=== PATIENT | female | born 1950 ===

== ENCOUNTER 2017-05-06 07:04 | Inpatient (IN) | payer MEDICAID ==
[2017-05-06 07:05] VITALS: BMI 31.3
[2017-05-06] MEDS ORDERED: Sodium Chloride 0.9% 1,000 ML IV ONE (07:22)
[2017-05-06] MEDS ORDERED: Albuterol-Ipratrop 3 mg / 0.5 (3 ml) UD INH STA (07:22)
--- NOTE | 2017-05-06 07:25 | C.PDOC ---
History Of Present Illness Patient is a 66 y/o F presenting with fever, productive cough, URI, rhinnorhea, generalized body myalgia that began last night. Patient notes chest pain when coughing. She denies shortness of breath, nausea, vomiting, abdominal pain, constipation, neck pain, or headache. Time Seen by Provider: 05/06/17 07:07 Chief Complaint (Nursing): Fever History Per: Patient History/Exam Limitations: no limitations Onset/Duration Of Symptoms: Hrs Current Symptoms Are (Timing): Still Present Location Of Pain: Diffuse Myalgias Sick Contacts (Context): None Associated Symptoms: Fever, Cough, Myalgias. denies: Nausea, Vomiting Ear Symptoms: Bilateral: None Recent travel outside of the [place]: No Past Medical History Reviewed: Historical Data, Nursing Documentation, Vital Signs Vital Signs: Last Vital Signs Temp 100.1 F H 05/06/17 08:30 Pulse 90 05/06/17 09:46 Resp 20 05/06/17 09:46 BP 111/61 05/06/17 09:46 Pulse Ox 96 05/06/17 09:46 - Medical History PMH: HTN, Hypercholesterolemia, Hypothyroidism Family History: States: Unknown Family Hx - Social History Hx Alcohol Use: No Hx Substance Use: No - Immunization History Hx Tetanus Toxoid Vaccination: No Hx Influenza Vaccination: No Hx Pneumococcal Vaccination: No Review Of Systems Constitutional: Positive for: Fever, Chills, Malaise Eyes: Negative for: Vision Change ENT: Negative for: Ear Pain, Throat Pain Cardiovascular: Positive for: Chest Pain (with cough ). Negative for: Palpitations Respiratory: Positive for: Cough, Sputum. Negative for: Shortness of Breath, SOB with Excertion, Wheezing Gastrointestinal: Negative for: Nausea, Vomiting, Abdominal Pain, Diarrhea, Constipation Genitourinary: Positive for: Dysuria (occasionally ). Negative for: Incontinence, Vaginal Discharge, Vaginal Bleeding Musculoskeletal: Negative for: Neck Pain, Back Pain Skin: Negative for: Rash Neurological: Negative for: Confusion, Altered Mental Status, Headache Physical Exam - Physical Exam Appears: Well, Non-toxic, No Acute Distress Skin: Warm, Dry Head: Atraumatic, Normacephalic Eye(s): bilateral: Normal Inspection, PERRL, EOMI Ear(s): Bilateral: Normal Nose: Normal, No Discharge Oral Mucosa: Moist Throat: Erythema (scant erythema), No Exudate Neck: Normal ROM, Supple Chest: Symmetrical, No Deformity Cardiovascular: Rhythm Regular, No Murmur Respiratory: No Rales, No Rhonchi, Wheezing (scant wheezing at bases) Gastrointestinal/Abdominal: Soft, No Tenderness Back: Normal Inspection, No CVA Tenderness Extremity: Normal ROM, No Tenderness, Other (moving all extremities ) Neurological/Psych: Oriented x3 Gait: Steady ED Course And Treatment - Laboratory Results Result Diagrams: 05/06/17 07:42 05/06/17 07:42 O2 Sat by Pulse Oximetry: 96 - Radiology CXR: Viewed By Me, Read By Radiologist CXR Interpretation: Yes: Other (Mild venous congestion. Right hilar prominence. ) - Physician Consult Information Time Consulting Physician Contacted: 09:11 Physician Contacted: Gokul Fisher Outcome Of Conversation: Case discussed with Dr. Fisher, and agrees on admission and plan. Medical Decision Making Medical Decision Making: Differential: Pneumonia vs. Strep vs. Viral infection Cxray conerning for developing R sided infiltrate. Lactate 1.6. IVF infusing. Duoneb given. Tylenol given in triage and toradol ordered. Started on antibiotics for community acquired pneumonia. Influenza resulted and positive. Tamiflu ordered. Spoke to Dr. Clement Fisher. Due to tachypnea, high fever, co- morbid conditions, will admit for influenza and pna. Disposition - Disposition Disposition: HOSPITALIZED Disposition Time: 08:28 Condition: FAIR - Clinical Impression Clinical Impression: Pneumonia, Influenza A - Scribe Statement The provider has reviewed the documentation as recorded by the Scribe Viky Mariscal All medical record entries made by the Scribe were at my direction and personally dictated by me. I have reviewed the chart and agree that the record accurately reflects my personal performance of the history, physical exam, medical decision making, and the department course for this patient. I have also personally directed, reviewed, and agree with the discharge instructions and disposition.
[2017-05-06] MEDS ORDERED: Sodium Chloride 0.9% 1,000 ML ONE (07:28)
[2017-05-06] MEDS ORDERED: Azithromycin 500 MG in Sodium Chloride 0.9% 250 ML IVPB STA (07:35)
[2017-05-06] MEDS ORDERED: cefTRIAXone IV 1 gm in Dextros 50 ML IVPB STA (07:35)
[2017-05-06 07:48] LABS: BASO # 0.1 K/uL (0.0-0.2); BASO % 1.1 % (0.0-2.0); EOS # 0.1 K/uL (0.0-0.7); EOS % 0.8 % (0.0-4.0); HEMATOCRIT 32.8 % (34.0-47.0); LYMPH # 0.7 K/uL (1.0-4.3); LYMPH % 10.4 % (20.0-40.0); MEAN CELL VOLUME 73.9 fL (81.0-99.0); MEAN CORPUSCULAR HGB CONC 32.5 g/dL (33.0-37.0); MEAN PLATELET VOLUME 8.6 fL (7.2-11.7); MONO # 0.6 K/uL (0.0-0.8); MONO % 9.7 % (0.0-10.0); RED CELL DISTRIBUTION WIDTH 16.3 % (11.5-14.5); WHITE BLOOD COUNT 6.3 K/uL (4.8-10.8)
[2017-05-06 07:58] LABS: CHLORIDE 99 mmol/L (98-107)
[2017-05-06 07:59] LABS: SODIUM 132 mmol/L (132-148)
[2017-05-06 08:00] LABS: POTASSIUM 4.1 mmol/L (3.6-5.2)
[2017-05-06 08:01] LABS: GFR AFRICAN-AMERICAN > 60
[2017-05-06 08:01] LABS: VENOUS BLOOD GAS BASE EXCESS 0.6 mmol/L (0.0-2.0); VENOUS BLOOD GAS PCO2 36 mmHg (40-60); VENOUS BLOOD PH 7.44 (7.32-7.43)
[2017-05-06 08:02] LABS: ALB/GLOB RATIO 1.3 (1.0-2.1); ALKALINE PHOSPHATASE 114 U/L (38-126); ALT/SGPT 80 U/L (9-52); AST/SGOT 53 U/L (14-36); BILIRUBIN,TOTAL 0.5 mg/dL (0.2-1.3); BLOOD UREA NITROGEN 12 mg/dL (7-17); CARBON DIOXIDE 24 mmol/L (22-30); GLUCOSE,RANDOM 124 mg/dL (65-105)
[2017-05-06 08:03] LABS: CALCIUM 8.6 mg/dl (8.6-10.4); MAGNESIUM 1.5 mg/dL (1.6-2.3); PHOSPHOROUS 2.3 mg/dL (2.5-4.5)
[2017-05-06] MEDS ORDERED: cefTRIAXone IV 1 gm in Dextros 50 ML IVPB ONE (08:12)
[2017-05-06] MEDS ORDERED: Azithromycin 500mg/250ML NS 500 MG/250 ML BAG IVPB ONE (08:12)
[2017-05-06] MEDS ORDERED: Ipratropium 0.02% Inhal Soln (0.5 mg/2.5 ml) UD IH ONE (08:31)
--- NOTE | 2017-05-06 08:53 | RAD ---
HISTORY: fever, cough COMPARISON: 04/21/2016 FINDINGS: LUNGS: Mild venous congestion. Right hilar prominence. PLEURA: No significant pleural effusion identified, no pneumothorax apparent. CARDIOVASCULAR: Normal. OSSEOUS STRUCTURES: No significant abnormalities. VISUALIZED UPPER ABDOMEN: Normal. OTHER FINDINGS: None. IMPRESSION: Mild venous congestion. Right hilar prominence.
[2017-05-06] MEDS: Levothyroxine 25 MCG TAB PO SCH (13:23)
[2017-05-06] MEDS: Pantoprazole 40 mg EC Tab PO SCH (13:32)
[2017-05-06] MEDS: Magnesium Sulfate 1 gm in D5W 1 GM/100 ML BAG IVPB SCH ×2 (13:32→13:41)
[2017-05-06] MEDS: Multiple Vitamins Tab PO SCH (13:32)
[2017-05-06] MEDS: Promethazine 6.25 MG/5 ML CUP PO PRN ×2 (13:41→21:25)
--- NOTE | 2017-05-06 14:03 | HP ---
HISTORY OF PRESENT ILLNESS: This is a 66-year-old [place] female came to the Emergency Room with history of high fever and chills. The patient has productive cough. The patient has rhinorrhea. The patient also complains of upper respiratory tract infection. The patient has generalized body myalgia and fatigue. This complaint started last night. The patient denies having any chest pain. She denies shortness of breath. No history of nausea, vomiting, or abdominal pain. No constipation, neck pain or headache. REVIEW OF SYSTEMS: CARDIOVASCULAR SYSTEM: Negative for chest pain. RESPIRATORY SYSTEM: As mentioned above. GI SYSTEM: No nausea, vomiting. No abdominal pain. 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 No backache. No urinary complaints. PSYCHIATRIC: The patient is stable. All other systems are negative. PAST MEDICAL HISTORY: History of hypertension, hypercholesterolemia, hypothyroidism, and diabetes. ALLERGIES: NO KNOWN ALLERGY. FAMILY HISTORY: No known inherited disease. SOCIAL HISTORY: Nonalcoholic. No IVDA. MEDICATIONS: The patient's medications are reviewed by me. PHYSICAL EXAMINATION GENERAL: This is a 66-year-old [place] female, alert, oriented, comfortable. VITAL SIGNS: Temperature 100.1, pulse 90, respirations 20, blood pressure 111/61 mmHg, pulse ox is 96% on room air. HEENT: Normal. NECK: JVP is flat. Carotids, no bruits. HEART: S1 and S2 normal. No gallop. No murmur. LUNGS: No rales, no wheezing. ABDOMEN: Soft, nontender. No organomegaly. GEOTHERMAL INSTALLER: No focal neurological deficits. EXTREMITIES: No edema of the legs. On admission, influenza serology is positive. Anemia is present. Hypomagnesemia present. Mild abnormal liver function test present. Hypertension and diabetes. PLAN: The patient will be admitted to the floor. We will get ID consult. IV antibiotic. Chest x-ray showed right hilar prominence and vascular congestion. diagnosis: possible pneumonia. flu. anemia, htn, dm. Gokul Fisher MD [facility] CLINICGoldie
[2017-05-06 16:18] VITALS: RESP 20
[2017-05-06] MEDS: (Novolin R) Insulin Human Regular 100 units/ml vial SC SCH ×2 (18:03→22:13)
[2017-05-07] MEDS: Promethazine 6.25 MG/5 ML CUP PO PRN (05:00)
[2017-05-07] MEDS: Levothyroxine 25 MCG TAB PO SCH (06:12)
[2017-05-07] MEDS: (Novolin R) Insulin Human Regular 100 units/ml vial SC SCH ×4 (07:23→21:20)
[2017-05-07] MEDS: cefTRIAXone IV 1 gm in Dextros 50 ML IVPB SCH (09:36)
[2017-05-07] MEDS: Multiple Vitamins Tab PO SCH (09:36)
[2017-05-07] MEDS: Pantoprazole 40 mg EC Tab PO SCH (09:36)
[2017-05-07] MEDS: Enoxaparin 40 mg Syringe SC SCH (09:37)
[2017-05-07] MEDS ORDERED: Albuterol-Ipratrop 3 mg / 0.5 (3 ml) UD INH STA (09:49)
--- NOTE | 2017-05-07 11:03 | CP.PCM.CON ---
History of Present Illness - History of Present Illness History of Present Illness: Patient is a 66 y/o F presenting with fever, productive cough, URI, rhinnorhea, generalized body myalgia that began last night. Patient notes chest pain when coughing. She denies shortness of breath, nausea, vomiting, abdominal pain, constipation, neck pain, or headache. - Medical History PMH: HTN, Hypercholesterolemia, Hypothyroidism Family History: States: Unknown Family Hx Review of Systems - Review of Systems All systems: reviewed and no additional remarkable complaints except - Constitutional Constitutional: As Per HPI - EENT Eyes: absent: As Per HPI, Blind Spots, Blurred Vision, Change in Vision, Decreased Night Vision, Diplopia, Discharge, Dry Eye, Exophthalmos, Floaters, Irritation, Itchy Eyes, Loss of Peripheral Vision, Pain, Photophobia, Requires Corrective Lenses, Sees Flashes, Spots in Vision, Tunnel Vision, Other Visual Disturbances, Loss of Vision, Other Ears: absent: As Per HPI, Decreased Hearing, Ear Discharge, Ear Pain, Tinnitus, Abnormal Hearing, Disequilibrium, Dizziness, Other Nose/Mouth/Throat: absent: As Per HPI, Epistaxis, Nasal Congestion, Nasal Discharge, Nasal Obstruction, Nasal Trauma, Nose Pain, Post Nasal Drip, Sinus Pain, Sinus Pressure, Bleeding Gums, Change in Voice, Dental Pain, Dry Mouth, Dysphagia, Halitosis, Hoarsness, Lip Swelling, Mouth Lesions, Mouth Pain, Odynophagia, Sore Throat, Throat Swelling, Tongue Swelling, Facial Pain, Neck Pain, Neck Mass, Other - Breasts Breasts: absent: As Per HPI, Change in Shape, Mass, Pain, Nipple Discharge, Nipple Inversion, Skin Changes, Swelling, Other - Cardiovascular Cardiovascular: absent: As Per HPI, Acrocyanosis, Chest Pain, Chest Pain at Rest , Chest Pain with Activity, Claudication, Diaphoresis, Dyspnea, Dyspnea on Exertion, Edema, Irregular Heart Rhythm, Pain Radiating to Arm/Neck/Jaw, Leg Edema, Leg Ulcers, Lightheadedness, Orthopnea, Palpitations, Paroxysmal Nocturnal Dyspnea, Pedal Edema, Radiating Pain, Rapid Heart Rate, Slow Heart Rate, Syncope, Other - Respiratory Respiratory: As Per HPI, Cough. absent: Hemoptysis - Gastrointestinal Gastrointestinal: absent: As Per HPI, Abdominal Pain, Belching, Bloating, Change in Bowel Habits, Change in Stool Character, Coffee Ground Emesis, Constipation, Cramping, Diarrhea, Dyspepsia, Dysphagia, Early Satiety, Excessive Flatus, Fecal Incontinence, Heartburn, Hematemesis, Hematochezia, Loose Stools, Melena, Nausea, Odynophagia, Temesmus, Vomiting, Other - Reproductive: Female Reproductive:Female: absent: As Per HPI, Amenorrhea, Amenorrhea/ Control, Currently Menstual, Cycle <21 Days, Cycle >35 Days, Cycle Variable, Menses 1-7 Days, Menses >/= 8 Days, Menses Variable, Cycle > 4 Weeks Between, No Menses for 6 Months, Heavy Menses, Light Menses, Normal Menses, Spotting Between Cycles , S/P Hysterectomy, Menopausal, Post Menopausal, Premenarche, Abnormal Vaginal Bleeding, Dysmenorrhea, Dyspareunia, Genital Lesions, Genital Pruritis, Pelvic Pain, Prolapse Symptoms, Sexual Dysfunction, Vaginal Discharge, Vaginal Dryness , Vaginal Odor, Vaginal Pruritis, Other - Menstruation Menstruation: absent: As Per HPI, Amenorrhea, Amenorrhea/ Control, Currently Menstual, Cycle <21 Days, Cycle >35 Days, Cycle Variable, Menses 1-7 Days, Menses >/= 8 Days, Menses Variable, Cycle > 4 Weeks Between, No Menses for 6 Months, Heavy Menses, Light Menses, Normal Menses, Spotting Between Cycles , S/P Hysterectomy, Menopausal, Post Menopausal, Premenarche, Abnormal Vaginal Bleeding, Dysmenorrhea, Other - Musculoskeletal Musculoskeletal: absent: As Per HPI, Abnormal Gait, Arthralgias, Atrophy, Back Pain, Deformity, Joint Swelling, Limited Range of Motion, Loss of Height, Muscle Cramps, Muscle Weakness, Myalgias, Neck Pain, Numbness, Radiating Pain into Limb, Stiffness, Tingling, Other - Integumentary Integumentary: absent: As Per HPI, Acne, Alopecia, Bleeding Lesions, Change in Hair, Change in Nails, Change in Pigmentation, Changing Lesions, Dry Skin, Erythema, Furuncle, Hirsutism, Lesions, New Lesions, Non-Healing Lesions, Photosensitivity, Pruritus, Rash, Skin Pain, Skin Ulcer, Sores, Striae, Swelling , Unusual Bruising, Wounds, Jaundice, Other - Neurological Neurological: absent: As Per HPI, Abnormal Gait, Abnormal Hearing, Abnormal Movements, Abnormal Speech, Behavioral Changes, Burning Sensations, Confusion, Convulsions, Disequilibrium, Dizziness, Numbness, Focal Weakness, Frequent Falls , Headaches, Lack of Coordination, Loss of Vision, Memory Loss, Paresthesias, Radicular Pain, Restless Legs, Sensory Deficit, Syncope, Tingling, Tremor, Vertigo, Weakness, Other Visual Disturbances, Other - Psychiatric Psychiatric: absent: As Per HPI, Abnormal Sleep Pattern, Anhedonia, Anxiety, Auditory Hallucinations, Behavioral Changes, Change in Appetite, Change in Libido, Confusion, Depression, Difficulty Concentrating, Hallucinations, Homicidal Ideation, Hopelessness, Irritability, Memory Loss, Mood Swings, Panic Attacks, Paranoia, Suicidal Ideation, Visual Hallucinations, Tactile Hallucinations, Other Past Patient History - Past Social History Smoking Status: Never Smoked - CARDIAC Hx Cardiac Disorders: Yes Hx Hypercholesterolemia: Yes Hx Hypertension: Yes - PULMONARY Hx Respiratory Disorders: No - NEUROLOGICAL Hx Neurological Disorder: No - HEENT Hx HEENT Problems: No - RENAL Hx Chronic Kidney Disease: No - ENDOCRINE/METABOLIC Hx Endocrine Disorders: Yes Hx Diabetes Mellitus Type 2: Yes Hx Hypothyroidism: Yes - HEMATOLOGICAL/ONCOLOGICAL Hx Blood Disorders: No - INTEGUMENTARY Hx Dermatological Problems: No - MUSCULOSKELETAL/RHEUMATOLOGICAL Hx Musculoskeletal Disorders: No Hx Falls: No - GASTROINTESTINAL Hx Gastrointestinal Disorders: No - GENITOURINARY/GYNECOLOGICAL Hx Genitourinary Disorders: No - PSYCHIATRIC Hx Psychophysiologic Disorder: No Hx Substance Use: No - SURGICAL HISTORY Hx Surgeries: No - ANESTHESIA Hx Anesthesia: No Meds Allergies/Adverse Reactions: Allergies Allergy/AdvReac Type Severity Reaction Status Date / Time No Known Allergies Allergy Verified 05/24/16 11:29 - Medications Medications: Current Medications Acetaminophen (Tylenol 325mg Tab) 650 mg PO Q6 PRN PRN Reason: Headache Last Admin: 05/06/17 16:32 Dose: 650 mg Albuterol/Ipratropium (Duoneb 3 Mg/0.5 Mg (3 Ml) Ud) 3 ml INH RQ6 [facility] Aspirin (Aspirin Chewable) 81 mg PO DAILY [facility] Last Admin: 05/07/17 09:36 Dose: 81 mg Enoxaparin Sodium (Lovenox) 40 mg SC DAILY [facility] Last Admin: 05/07/17 09:37 Dose: 40 mg Gabapentin (Neurontin) 300 mg PO DAILY [facility] Last Admin: 05/07/17 09:36 Dose: 300 mg Ceftriaxone Sodium (Rocephin Iv 1 Gm Duplex) 50 mls @ 100 mls/hr IVPB DAILY [facility] Last Admin: 05/07/17 09:36 Dose: 100 mls/hr Insulin Human Regular (Novolin R) 0 unit SC ACHS [facility] PRN Reason: Protocol Last Admin: 05/07/17 07:23 Dose: Not Given Levothyroxine Sodium (Synthroid) 25 mcg PO DAILY@0630 [facility] Last Admin: 05/07/17 06:12 Dose: 25 mcg Metformin HCl (Glucophage) 500 mg PO DAILY [facility] Last Admin: 05/07/17 09:36 Dose: 500 mg Metoprolol Tartrate (Lopressor) 25 mg PO DAILY [facility] Last Admin: 05/07/17 09:36 Dose: 25 mg Multivitamins (Hexavitamin) 1 tab PO DAILY [facility] Last Admin: 05/07/17 09:36 Dose: 1 tab Pantoprazole Sodium (Protonix Ec Tab) 40 mg PO DAILY [facility] Last Admin: 05/07/17 09:36 Dose: 40 mg Promethazine HCl (Phenergan Syrup) 6.25 mg PO Q6 PRN PRN Reason: Cough Last Admin: 05/07/17 05:00 Dose: 6.25 mg Rosuvastatin Calcium (Crestor) 5 mg PO HS [facility] Last Admin: 05/06/17 21:21 Dose: 5 mg Physical Exam - Constitutional Appears: Non-toxic, Chronically Ill - Head Exam Head Exam: NORMOCEPHALIC - Eye Exam Eye Exam: PERRL - ENT Exam ENT Exam: Mucous Membranes Dry - Neck Exam Neck exam: Negative for: Lymphadenopathy - Respiratory Exam Respiratory Exam: Decreased Breath Sounds - Cardiovascular Exam Cardiovascular Exam: REGULAR RHYTHM, +S1, +S2 - GI/Abdominal Exam GI & Abdominal Exam: Diminished Bowel Sounds, Soft - Rectal Exam Rectal Exam: Deferred - Exam Exam: NORMAL INSPECTION - Extremities Exam Extremities exam: Negative for: pedal edema - Back Exam Back exam: absent: CVA tenderness (L), CVA tenderness (R) - Neurological Exam Neurological exam: Alert, CN II-XII Intact, Oriented x3, Reflexes Normal - Psychiatric Exam Psychiatric exam: Normal Mood - Skin Skin Exam: Dry Results - Vital Signs Recent Vital Signs: Last Vital Signs Temp 98.1 F 05/07/17 09:04 Pulse 67 05/07/17 09:04 Resp 20 05/07/17 09:04 BP 154/75 H 05/07/17 09:36 Pulse Ox 97 05/07/17 09:04 - Labs Result Diagrams: 05/06/17 07:42 05/06/17 07:42 Labs: Laboratory Results - last 24 hr 05/06/17 05/06/17 05/06/17 12:00 16:54 21:32 POC Glucose (mg/dL) 146 H 162 H 130 H Stool Occult Blood 05/07/17 05/07/17 06:27 07:53 POC Glucose (mg/dL) 132 H Stool Occult Blood Negative Assessment & Plan (1) Influenza A Status: Acute (2) Pneumonia Status: Acute - Assessment and Plan (Free Text) Assessment: cont tamiflu await blood/ sputum cultures
--- NOTE | 2017-05-07 12:21 | CP.PCM.PN ---
Subjective - Date & Time of Evaluation Date of Evaluation: 05/07/17 Time of Evaluation: 12:18 - Subjective Subjective: FEELS SLIGHTLY BETTER. COUGH PRESENT. LOW GRADE TEMP. Objective - Vital Signs/Intake and Output Vital Signs (last 24 hours): Temp Pulse Resp BP Pulse Ox 98.1 F 67 20 154/75 H 97 05/07/17 09:04 05/07/17 09:04 05/07/17 09:04 05/07/17 09:36 05/07/17 09:04 Intake and Output: 05/07/17 05/07/17 06:59 18:59 Intake Total 240 Balance 240 - Medications Medications: Current Medications Acetaminophen (Tylenol 325mg Tab) 650 mg PO Q6 PRN PRN Reason: Headache Last Admin: 05/06/17 16:32 Dose: 650 mg Albuterol/Ipratropium (Duoneb 3 Mg/0.5 Mg (3 Ml) Ud) 3 ml INH RQ6 [facility] Aspirin (Aspirin Chewable) 81 mg PO DAILY [facility] Last Admin: 05/07/17 09:36 Dose: 81 mg Enoxaparin Sodium (Lovenox) 40 mg SC DAILY [facility] Last Admin: 05/07/17 09:37 Dose: 40 mg Gabapentin (Neurontin) 300 mg PO DAILY [facility] Last Admin: 05/07/17 09:36 Dose: 300 mg Ceftriaxone Sodium (Rocephin Iv 1 Gm Duplex) 50 mls @ 100 mls/hr IVPB DAILY [facility] Last Admin: 05/07/17 09:36 Dose: 100 mls/hr Insulin Human Regular (Novolin R) 0 unit SC ACHS [facility] PRN Reason: Protocol Last Admin: 05/07/17 11:55 Dose: 2 unit Levothyroxine Sodium (Synthroid) 25 mcg PO DAILY@0630 [facility] Last Admin: 05/07/17 06:12 Dose: 25 mcg Metformin HCl (Glucophage) 500 mg PO DAILY [facility] Last Admin: 05/07/17 09:36 Dose: 500 mg Metoprolol Tartrate (Lopressor) 25 mg PO DAILY [facility] Last Admin: 05/07/17 09:36 Dose: 25 mg Multivitamins (Hexavitamin) 1 tab PO DAILY [facility] Last Admin: 05/07/17 09:36 Dose: 1 tab Oseltamivir Phosphate (Tamiflu Cap) 75 mg PO BID [facility] Stop: 05/12/17 11:02 Last Admin: 05/07/17 11:55 Dose: 75 mg Pantoprazole Sodium (Protonix Ec Tab) 40 mg PO DAILY [facility] Last Admin: 05/07/17 09:36 Dose: 40 mg Promethazine HCl (Phenergan Syrup) 6.25 mg PO Q6 PRN PRN Reason: Cough Last Admin: 05/07/17 05:00 Dose: 6.25 mg Rosuvastatin Calcium (Crestor) 5 mg PO HS [facility] Last Admin: 05/06/17 21:21 Dose: 5 mg - Labs Labs: 05/06/17 07:42 05/06/17 07:42 - Constitutional Appears: No Acute Distress, Chronically Ill - Eye Exam Eye Exam: Normal appearance, PERRL - ENT Exam ENT Exam: Normal Exam - Respiratory Exam Respiratory Exam: Clear to Ausculation Bilateral, NORMAL BREATHING PATTERN - Cardiovascular Exam Cardiovascular Exam: REGULAR RHYTHM, +S1, +S2 - GI/Abdominal Exam GI & Abdominal Exam: Soft, Normal Bowel Sounds - Extremities Exam Extremities Exam: Full ROM, Normal Capillary Refill, Normal Inspection. absent : Joint Swelling, Pedal Edema - Back Exam Back Exam: NORMAL INSPECTION - Neurological Exam Neurological Exam: Alert, Awake, CN II-XII Intact, Normal Gait, Oriented x3 - Psychiatric Exam Psychiatric exam: Normal Affect, Normal Mood Assessment and Plan - Assessment and Plan (Free Text) Assessment: INFLUENZA A. R/O PNEUMONIA. Plan: FOR CHEST X RAY. IV ROCEPHIN/
[2017-05-07] MEDS: Albuterol-Ipratrop 3 mg / 0.5 (3 ml) UD INH SCH (13:54)
--- NOTE | 2017-05-07 15:07 | RAD ---
HISTORY: COUGH COMPARISON: Portable chest 05/06/2017. TECHNIQUE: Chest PA and lateral FINDINGS: LUNGS: No active pulmonary disease. PLEURA: No significant pleural effusion identified. No pneumothorax apparent. CARDIOVASCULAR: Stable mild cardiomegaly noted. No pulmonary vascular derangement identified at this time. OSSEOUS STRUCTURES: No significant abnormalities. VISUALIZED UPPER ABDOMEN: Normal. OTHER FINDINGS: None. IMPRESSION: Stable mild cardiomegaly. No acute pulmonary disease appreciated bilaterally.
[2017-05-08] MEDS: Levothyroxine 25 MCG TAB PO SCH (05:56)
[2017-05-08] MEDS: (Novolin R) Insulin Human Regular 100 units/ml vial SC SCH ×3 (08:02→17:10)
[2017-05-08] MEDS: Albuterol-Ipratrop 3 mg / 0.5 (3 ml) UD INH SCH ×2 (08:10→13:24)
[2017-05-08 09:39] VITALS: BP 158/94
[2017-05-08] MEDS: cefTRIAXone IV 1 gm in Dextros 50 ML IVPB SCH (09:47)
[2017-05-08] MEDS: Multiple Vitamins Tab PO SCH (09:48)
[2017-05-08] MEDS: Pantoprazole 40 mg EC Tab PO SCH (09:48)
[2017-05-08] MEDS: Enoxaparin 40 mg Syringe SC SCH (09:49)
--- NOTE | 2017-05-08 12:34 | CP.PCM.PN ---
Subjective - Date & Time of Evaluation Date of Evaluation: 05/08/17 Time of Evaluation: 12:31 - Subjective Subjective: improving. afebrile. chest x ray wnl. Objective - Vital Signs/Intake and Output Vital Signs (last 24 hours): Temp Pulse Resp BP Pulse Ox 97.4 F L 68 20 158/94 H 100 05/08/17 09:38 05/08/17 09:38 05/08/17 09:38 05/08/17 09:48 05/08/17 09:38 Intake and Output: 05/08/17 05/08/17 06:59 18:59 Intake Total 1350 Balance 1350 - Medications Medications: Current Medications Acetaminophen (Tylenol 325mg Tab) 650 mg PO Q6 PRN PRN Reason: Headache Last Admin: 05/08/17 03:30 Dose: 650 mg Albuterol/Ipratropium (Duoneb 3 Mg/0.5 Mg (3 Ml) Ud) 3 ml INH RQ6 [facility] Last Admin: 05/08/17 08:10 Dose: 3 ml Aspirin (Aspirin Chewable) 81 mg PO DAILY [facility] Last Admin: 05/08/17 09:48 Dose: 81 mg Enoxaparin Sodium (Lovenox) 40 mg SC DAILY [facility] Last Admin: 05/08/17 09:49 Dose: 40 mg Gabapentin (Neurontin) 300 mg PO DAILY [facility] Last Admin: 05/08/17 09:48 Dose: 300 mg Ceftriaxone Sodium (Rocephin Iv 1 Gm Duplex) 50 mls @ 100 mls/hr IVPB DAILY [facility] Last Admin: 05/08/17 09:47 Dose: 100 mls/hr Insulin Human Regular (Novolin R) 0 unit SC ACHS [facility] PRN Reason: Protocol Last Admin: 05/08/17 08:02 Dose: Not Given Levothyroxine Sodium (Synthroid) 25 mcg PO DAILY@0630 [facility] Last Admin: 05/08/17 05:56 Dose: 25 mcg Metformin HCl (Glucophage) 500 mg PO DAILY [facility] Last Admin: 05/08/17 09:48 Dose: 500 mg Metoprolol Tartrate (Lopressor) 25 mg PO DAILY [facility] Last Admin: 05/08/17 09:48 Dose: 25 mg Multivitamins (Hexavitamin) 1 tab PO DAILY [facility] Last Admin: 05/08/17 09:48 Dose: 1 tab Oseltamivir Phosphate (Tamiflu Cap) 75 mg PO BID [facility] Stop: 05/12/17 11:02 Last Admin: 05/08/17 09:48 Dose: 75 mg Pantoprazole Sodium (Protonix Ec Tab) 40 mg PO DAILY [facility] Last Admin: 05/08/17 09:48 Dose: 40 mg Promethazine HCl (Phenergan Syrup) 6.25 mg PO Q6 PRN PRN Reason: Cough Last Admin: 05/07/17 05:00 Dose: 6.25 mg Rosuvastatin Calcium (Crestor) 5 mg PO HS [facility] Last Admin: 05/07/17 21:32 Dose: 5 mg - Labs Labs: 05/06/17 07:42 05/06/17 07:42 - Constitutional Appears: No Acute Distress, Chronically Ill - Eye Exam Eye Exam: Normal appearance, PERRL - ENT Exam ENT Exam: Normal Exam - Respiratory Exam Respiratory Exam: Clear to Ausculation Bilateral, NORMAL BREATHING PATTERN - Cardiovascular Exam Cardiovascular Exam: REGULAR RHYTHM, +S1, +S2 - GI/Abdominal Exam GI & Abdominal Exam: Soft, Normal Bowel Sounds - Extremities Exam Extremities Exam: Full ROM, Normal Capillary Refill, Normal Inspection. absent : Joint Swelling, Pedal Edema - Back Exam Back Exam: NORMAL INSPECTION - Neurological Exam Neurological Exam: Alert, Awake, CN II-XII Intact, Normal Gait, Oriented x3 Assessment and Plan - Assessment and Plan (Free Text) Assessment: influenza a flu. Plan: discharge home. [id number] mg po bid [address] all home meds. f/u in office 2 wks.
--- NOTE | 2017-05-08 16:38 | CP.PCM.PN ---
Subjective - Date & Time of Evaluation Date of Evaluation: 05/08/17 Time of Evaluation: 11:00 - Subjective Subjective: Alert, orientedx3, no sob or chest pains. Objective - Vital Signs/Intake and Output Vital Signs (last 24 hours): Temp Pulse Resp BP Pulse Ox 97.4 F L 68 20 158/94 H 100 05/08/17 09:38 05/08/17 09:38 05/08/17 09:38 05/08/17 16:07 05/08/17 09:38 Intake and Output: 05/08/17 05/08/17 06:59 18:59 Intake Total 1350 360 Balance 1350 360 - Medications Medications: Current Medications Acetaminophen (Tylenol 325mg Tab) 650 mg PO Q6 PRN PRN Reason: Headache Last Admin: 05/08/17 03:30 Dose: 650 mg Albuterol/Ipratropium (Duoneb 3 Mg/0.5 Mg (3 Ml) Ud) 3 ml INH RQ6 [facility] Last Admin: 05/08/17 13:24 Dose: 3 ml Aspirin (Aspirin Chewable) 81 mg PO DAILY [facility] Last Admin: 05/08/17 09:48 Dose: 81 mg Enoxaparin Sodium (Lovenox) 40 mg SC DAILY [facility] Last Admin: 05/08/17 09:49 Dose: 40 mg Gabapentin (Neurontin) 300 mg PO DAILY [facility] Last Admin: 05/08/17 09:48 Dose: 300 mg Ceftriaxone Sodium (Rocephin Iv 1 Gm Duplex) 50 mls @ 100 mls/hr IVPB DAILY [facility] Last Admin: 05/08/17 09:47 Dose: 100 mls/hr Insulin Human Regular (Novolin R) 0 unit SC ACHS [facility] PRN Reason: Protocol Last Admin: 05/08/17 12:30 Dose: 2 unit Levothyroxine Sodium (Synthroid) 25 mcg PO DAILY@0630 [facility] Last Admin: 05/08/17 05:56 Dose: 25 mcg Metformin HCl (Glucophage) 500 mg PO DAILY [facility] Last Admin: 05/08/17 09:48 Dose: 500 mg Metoprolol Tartrate (Lopressor) 25 mg PO DAILY [facility] Last Admin: 05/08/17 09:48 Dose: 25 mg Multivitamins (Hexavitamin) 1 tab PO DAILY [facility] Last Admin: 05/08/17 09:48 Dose: 1 tab Oseltamivir Phosphate (Tamiflu Cap) 75 mg PO BID [facility] Stop: 05/12/17 11:02 Last Admin: 05/08/17 09:48 Dose: 75 mg Pantoprazole Sodium (Protonix Ec Tab) 40 mg PO DAILY [facility] Last Admin: 05/08/17 09:48 Dose: 40 mg Promethazine HCl (Phenergan Syrup) 6.25 mg PO Q6 PRN PRN Reason: Cough Last Admin: 05/07/17 05:00 Dose: 6.25 mg Rosuvastatin Calcium (Crestor) 5 mg PO HS [facility] Last Admin: 05/07/17 21:32 Dose: 5 mg - Labs Labs: 05/06/17 07:42 05/06/17 07:42 Assessment and Plan - Assessment and Plan (Free Text) Assessment: Patient is seen and examined.No fever, sob or distress. Able to eat fair. D/W DR Juan R Fisher, plan to discharge home today on tamiflu for 3 more days. Advised frequent handwashing and contact precautions at home. To follow up in the office in 1 week.
[2017-05-08 17:55] VITALS: PULSE 64; TEMP 98.1; O2SAT 98
--- NOTE | 2017-05-09 02:57 | DS ---
HISTORY OF PRESENT ILLNESS: This is a 66-year-old [place] female came to the emergency room with history of high fever with chills, severe fatigue and body myalgia. This complaint started about 12 hours earlier. The patient has persistent cough, so she came to the emergency room. No history of chest pain. PAST MEDICAL HISTORY: Hypertension, diabetes, hypercholesterolemia, and hypothyroidism. FAMILY HISTORY: No known family history. MEDICATIONS: Reviewed by me. In the emergency room, the patient was having high fever. PHYSICAL EXAMINATION: Within normal limits. LABORATORY DATA: The patient's white cells were within normal limit. Anemia was present. Chest x-ray was possible right hilar infarct. Because of this the patient was advised to be admitted for possible pneumonia. The patient's influenza A virus test was positive. Other lab work was within normal limit. During the hospital course, the patient has IV antibiotics. ID evaluation done by Dr. Wang. The patient treated with Tamiflu and Rocephin. The patient improved. Repeat chest x-ray was within normal limit. IMPRESSION: Influenza A flu, possible pneumonia, diabetes and hypertension. DISPOSITION: The patient was discharged home. We will continue Tamiflu for 3 more days. No other antibiotics. We will continue on the medication and will be followed in the office in about 2 weeks. Gokul Fisher MD
== END 2017-05-08 19:09 | disposition home or self-care (01) | DRG 69 ==
LOC: C.ER 07:04 → C.9E 09:08 → C.5S 11:08 → C.3T 05-07 13:23
PROVIDERS: ADMIT Internal Medicine; ATTEND Internal Medicine
DX: J10.1 Influenza due to other identified influenza virus with other respiratory manifestations (principal); J18.9 Pneumonia, unspecified organism; I10 Essential (primary) hypertension; E03.9 Hypothyroidism, unspecified; E11.9 Type 2 diabetes mellitus without complications; E78.00 Pure hypercholesterolemia, unspecified

== ENCOUNTER 2018-08-28 10:15 | Day surgery (SDC) | payer MEDICARE, MEDICAID ==
[2018-08-28] MEDS ORDERED: Midazolam 2 MG/2 ML VIAL ONE (13:09)
[2018-08-28] MEDS ORDERED: Propofol 10 mg/ml Inj (20 ML) ONE ×2 (13:09→13:12)
[2018-08-28 13:46] VITALS: O2SAT 100
[2018-08-28 14:42] VITALS: BP 160/90; PULSE 57; RESP 17; TEMP 97
== END 2018-08-28 14:35 | disposition home or self-care (01) ==
LOC: C.ENDO 10:15
PROVIDERS: ATTEND Internal Medicine Gastroenterology
DX: Z12.11 Encounter for screening for malignant neoplasm of colon (principal); K29.50 Unspecified chronic gastritis without bleeding; B96.81 Helicobacter pylori [H. pylori] as the cause of diseases classified elsewhere; K64.1 Second degree hemorrhoids; K44.9 Diaphragmatic hernia without obstruction or gangrene; K21.0 Gastro-esophageal reflux disease with esophagitis; I10 Essential (primary) hypertension; E78.5 Hyperlipidemia, unspecified; E11.9 Type 2 diabetes mellitus without complications; E03.9 Hypothyroidism, unspecified; E66.9 Obesity, unspecified
CPT/HCPCS: 43239; 82948; 88305; 88312; 88342; G0121; J2250; J2704